=== PATIENT | male | born 1940 | race Caucasian/White ===

== ENCOUNTER 2016-07-15 11:07 | Outpatient (CLI) | payer MEDICARE, BC | END 2016-07-15 11:08 | disposition home or self-care (01) | DX: I25.9 Chronic ischemic heart disease, unspecified (principal); E78.5 Hyperlipidemia, unspecified; R73.01 Impaired fasting glucose ==

== ENCOUNTER 2017-07-20 11:27 | Outpatient (CLI) | payer MEDICARE, BC ==
[2017-07-20 18:12] LABS: CHOL/HDL RATIO 3.7 (<5.0); CHOLESTEROL 152 mg/dL; GLUCOSE 112 mg/dL (70-100); HDL CHOLESTEROL 41 mg/dL; LDL CHOLESTEROL,CALCULATED 92 mg/dL; LDL/HDL RATIO 2.2 (<3.6); VLDL CHOLESTEROL 19 mg/dL
== END 2017-07-20 11:28 | disposition home or self-care (01) ==
LOC: LAB.F 11:27
PROVIDERS: ATTEND Internal Medicine
DX: Z00.00 Encounter for general adult medical examination without abnormal findings (principal); F10.21 Alcohol dependence, in remission; K59.00 Constipation, unspecified; I25.9 Chronic ischemic heart disease, unspecified; I44.0 Atrioventricular block, first degree; E78.5 Hyperlipidemia, unspecified; I10 Essential (primary) hypertension; H61.23 Impacted cerumen, bilateral; R73.01 Impaired fasting glucose; G47.00 Insomnia, unspecified; R41.3 Other amnesia; F41.8 Other specified anxiety disorders; I25.2 Old myocardial infarction; C44.90 Unspecified malignant neoplasm of skin, unspecified; I99.9 Unspecified disorder of circulatory system; R47.01 Aphasia
CPT/HCPCS: 36415; 80061; 82947; 83721

== ENCOUNTER 2018-08-22 21:10 | Outpatient (CLI) | payer MEDICARE, BC | END 2018-08-22 21:11 | disposition critical access hospital (66) | LOC: EMS 21:10 | PROVIDERS: ATTEND Surgery | DX: R10.9 Unspecified abdominal pain (principal) | CPT/HCPCS: A0425; A0429 ==

== ENCOUNTER 2018-08-22 22:01 | Emergency (ER) | payer MEDICARE, BC ==
[2018-08-22] MEDS ORDERED: SODIUM CHLORIDE 0.9% 1,000 ML IV ONE (22:13)
[2018-08-22] MEDS ORDERED: MORPHINE 2 MG/ML CARPUJECT IVP STA (22:13)
[2018-08-22] MEDS ORDERED: ONDANSETRON 4 MG/2 ML VIAL IVP STA (22:13)
--- NOTE | 2018-08-22 22:14 | ED Physician Documentation ---
PD HPI ABD PAIN - Stated complaint Stated Complaint: ABD PAIN - Chief complaint Chief Complaint: Abd Pain - History obtained from History obtained from: Patient (poor historian), EMS, Caregiver - History of Present Illness Timing - onset: Today Timing - duration: Hours Timing - details: Gradual onset Quality: Cramping, Aching, Pain Location: All over / everywhere (Patient does have history of dementia so more difficult to get the story from him. [facility] that the patient has had constipation for the past few days and did complain of some lower abdominal pain. Today in the last few hours he was having complaints of general abdominal pain and was more confused than baseline and appeared pale. He did not have any vomiting. There is no reported fever.) Radiation: Upper back Improved by: No: Position (he seems restless in position) Associated symptoms: Constipation. No: Fever, Vomiting, Diarrhea Similar symptoms before: Has not had sx before Review of Systems Unable to obtain: Dementia Constitutional: denies: Fever Cardiac: denies: Chest pain / pressure GI: reports: Abdominal Pain. denies: Vomiting Neurologic: denies: Headache PD PAST MEDICAL HISTORY - Past Medical History Cardiovascular: Hypertension Neuro: Dementia - Present Medications Home Medications: Ambulatory Orders Medication Instructions Recorded Confirmed Acetaminophen 1,000 mg PO PRN PRN MDD 4gm 08/22/18 08/22/18 Amitriptyline HCl 25 mg PO DAILY 08/22/18 08/22/18 Aspirin Chewable [[place] 81 mg PO DAILY 08/22/18 08/22/18 Aspirin] Atorvastatin [Lipitor] 40 mg PO DAILY 08/22/18 08/22/18 Memantine HCl 5 mg PO DAILY 08/22/18 08/22/18 Metoprolol Succinate 25 mg PO DAILY 08/22/18 08/22/18 Nitroglycerin 0.4 mg SL PRN PRN 08/22/18 08/22/18 PARoxetine HCl [Paroxetine HCl] 40 mg PO DAILY 08/22/18 08/22/18 Polyethylene Glycol 3350 1 tbs PO DAILY PRN 08/22/18 08/22/18 - Allergies Allergies/Adverse Reactions: Allergies Allergy/AdvReac Type Severity Reaction Status Date / Time No Known Drug Allergies Allergy Verified 08/22/18 22:06 - Family History Family history: reports: Non contributory PD ED PE NORMAL - Vitals Vital signs reviewed: Yes - General General: Well developed/nourished, Other (He is poorly interactive and just complains of his abdomen hurting and states "please cut out". He is not really answering directed questions. He does appear pale but not diaphoretic.) - HEENT HEENT: Pharynx benign - Neck Neck: Supple, no meningeal sign, No adenopathy - Cardiac Cardiac: RRR, No murmur - Respiratory Respiratory: Clear bilaterally - Abdomen Abdomen: Non distended, No organomegaly, Other (tender in the mid to upper abdomen with guarding but not percussion tenderness. ). No: Normal bowel sounds (decreased) - Male Male : Other (normal without tenderness) - Rectal Rectal: Deferred - Back Back: No CVA TTP - Derm Derm: No: Normal color - Extremities Extremities: No deformity, Normal ROM s pain, No edema - Neuro Neuro: No motor deficit Results - Vitals Vitals: Vital Signs - 24 hr 08/22/18 08/22/18 08/23/18 22:02 23:39 00:37 Temperature 35.8 C L Heart Rate 73 74 66 Respiratory 20 16 18 Rate Blood Pressure 175/86 H 118/80 114/70 O2 Saturation 96 95 94 Oxygen O2 Source Room air - Labs Labs: Laboratory Tests 08/22/18 08/22/18 08/22/18 22:16 22:16 22:16 WBC 10.7 RBC 4.41 L Hgb 13.8 L Hct 40.9 L MCV 92.9 MCH 31.3 H MCHC 33.7 RDW 12.8 Plt Count 233 MPV 8.3 Neut # (Auto) 9.2 H Lymph # (Auto) 0.9 L [place] # (Auto) 0.4 Eos # (Auto) 0.1 Baso # (Auto) 0.1 Absolute Nucleated RBC 0.00 Nucleated RBC % 0.0 Sodium 136 Potassium 3.8 Chloride 99 L Carbon Dioxide 28 Anion Gap 9.0 BUN 18 Creatinine 1.0 Estimated GFR (MDRD) 72 L Glucose 216 H Lactic Acid 1.7 Calcium 9.1 Total Bilirubin 1.2 H AST 112 H ALT 46 Alkaline Phosphatase 126 H Troponin I Total Protein 7.6 Albumin 4.1 Globulin 3.5 Albumin/Globulin Ratio 1.2 Lipase 37 08/22/18 22:16 WBC RBC Hgb Hct MCV MCH MCHC RDW Plt Count MPV Neut # (Auto) Lymph # (Auto) [place] # (Auto) Eos # (Auto) Baso # (Auto) Absolute Nucleated RBC Nucleated RBC % Sodium Potassium Chloride Carbon Dioxide Anion Gap BUN Creatinine Estimated GFR (MDRD) Glucose Lactic Acid Calcium Total Bilirubin AST ALT Alkaline Phosphatase Troponin I < 0.04 Total Protein Albumin Globulin Albumin/Globulin Ratio Lipase - Rads (name of study) abd/pelvic CT Radiology: Prelim report reviewed (Largely distended stomach and some distention of the proximal small bowel loops without transition point. There is no free air nor free fluids.), EMP read contemporaneously, See rad report PD MEDICAL DECISION MAKING - ED course Complexity details: reviewed results (CT showing just a markedly distended stomach and some dilation of the proximal small bowel. There is no obvious transition point so does not look obstruction per se. No other acute abn ormality.), re-evaluated patient (He was given small amount of antiemetic and pain medicine along with IV fluids. He had a marketed improvement in his discomfort. He now does not have any abdominal pain. His appearing with improved color and is conversant and interactive at his baseline according to his who is now here. He is watched in the ER for a little while longer and he remains without any abdominal pain. Recheck of the abdomen is nontender. Bowel sounds are present. I think he had a bezoar and distended abdomen with the discomfort from that and presume the food is now moving along.), considered differential (Concern for obstruction or focal infection such as diverticulitis or appendix. Also concern for vascular process such as aneurysm. Also concern for sepsis from infectious cause given the altered mentation. We will check blood count and labs as well as urine and CT scan.), d/w patient Departure - Departure Disposition: 01 Home, Self Care Clinical Impression: Acute distention of stomach Abdominal pain Qualifiers: Abdominal location: generalized Qualified Code(s): R10.84 - Generalized abdominal pain Condition: Stable Record reviewed to determine appropriate education?: Yes Instructions: ED Abdominal Pain Unkn Cause Comments: Liquid diet only for 12 hours or so. Continue usual medications. Recheck if recurrent symptoms but I would not anticipate them at this time. Discharge Date/Time: 08/23/18 00:47
[2018-08-22 22:21] LABS: BASOPHILS # (AUTO) 0.1 10^3/uL (0.0-0.1); EOSINOPHILS # (AUTO) 0.1 10^3/uL (0.0-0.7); EOSINOPHILS % (AUTO) 0.5 %; HGB - HEMOGLOBIN 13.8 g/dL (14.0-18.0); LYMPHOCYTES # (AUTO) 0.9 10^3/uL (1.5-3.5); LYMPHOCYTES % (AUTO) 8.8 %; MEAN CORPUSCULAR HEMOGLOBIN 31.3 pg (27.0-31.0); MEAN CORPUSCULAR HGB CONC 33.7 g/dL (32.0-36.0); MEAN CORPUSCULAR VOLUME 92.9 fL (80.0-94.0); MEAN PLATELET VOLUME 8.3 fL (7.4-11.4); MONOCYTES # (AUTO) 0.4 10^3/uL (0.0-1.0); MONOCYTES % (AUTO) 3.6 %; NEUTROPHILS # (AUTO) 9.2 10^3/uL (1.5-6.6); NEUTROPHILS % (AUTO) 86.1 %; PLT - PLATELET COUNT 233 10^3/uL (130-450); RED BLOOD COUNT 4.41 10^6/uL (4.70-6.10); RED CELL DISTRIBUTION WIDTH 12.8 % (12.0-15.0); WHITE BLOOD COUNT 10.7 x10^3/uL (4.8-10.8)
[2018-08-22] MEDS ORDERED: IOPAMIDOL-300 100 ML VIAL ONE (22:27)
[2018-08-22 22:40] LABS: ALBUMIN 4.1 g/dL (3.2-5.5); ALBUMIN/GLOBULIN RATIO 1.2 (1.0-2.2); BILIRUBIN,TOTAL 1.2 mg/dL (0.2-1.0); CALCIUM 9.1 mg/dL (8.5-10.3); TOTAL PROTEIN 7.6 g/dL (6.7-8.2)
[2018-08-22] MEDS ORDERED: IOPAMIDOL-300 100 ML VIAL IVP ONE (22:44)
--- NOTE | 2018-08-22 23:16 | CT Report ---
Reason: diffuse abd pain, onset today Procedure Date: 08/22/2018 Accession Number: [id number] / [id number] Procedure: CT - Abdomen/Pelvis W CPT Code: FULL RESULT: EXAM: CT ABDOMEN AND PELVIS EXAM DATE: 08/22/2018 10:45 PM. CLINICAL HISTORY: Diffuse abdominal pain. COMPARISONS: None. TECHNIQUE: Routine helical CT imaging was performed through the abdomen and pelvis. IV contrast: ISOVUE 300 100mL. Enteric contrast: No. Reconstructions: Coronal and sagittal. In accordance with CT protocol optimization, one or more of the following dose reduction techniques were utilized for this exam: automated exposure control, adjustment of mA and/or KV based on patient size, or use of iterative reconstructive technique. FINDINGS: Lung Bases: Mild bilateral atelectasis, infiltrate, or edema. Mild cardiomegaly. Coronary artery calcifications. Liver: Fatty infiltration. Gallbladder/Bile Ducts: Mildly dilated gallbladder measuring about 12 mm. No calcified gallstones. No obvious cholecystitis. Spleen: Mild capsular calcifications. Pancreas: Moderate atrophy. Adrenal Glands: Normal. Kidneys: Small left renal cyst. No masses or hydronephrosis. Peritoneal Cavity/Bowel: Distended fluid-filled stomach. Nonspecific fluid-filled small bowel loops measuring up to 3.3 cm. Distal small bowel is decompressed. Colonic diverticula. No obvious diverticulitis. No free air or free fluid. No lymphadenopathy. Appendix appears normal. Pelvic Organs: Enlarged prostate measuring 6.4 x 5.1 cm. Intravesicular protrusion measuring 1.6 cm. Vasculature: Moderate atherosclerosis. Ascending aorta measures 4.4 cm. Proximal descending aorta measures 3.3 cm. No abdominal aortic aneurysm. Aortobifemoral bypass graft. Bones: No significant abnormality. Other: None. IMPRESSION: 1. Cardiomegaly and coronary artery calcifications with bilateral atelectasis, infiltrate, or edema. 2. Fatty liver. 3. Dilated gallbladder without obvious cholecystitis. Correlate for any gallbladder symptoms. 4. Distended fluid-filled stomach. There are a few nonspecific small bowel loops measuring up to 3.3 cm with a few air-fluid levels. Mild ileus or enteritis could have this appearance. Low-grade obstruction less likely but not entirely excluded. 5. A few colonic diverticula are seen. No diverticulitis or appendicitis noted. 6. Enlarged prostate with intravesicular protrusion measuring 1.6 cm. 7. 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 Moderate atherosclerosis with aortobifemoral bypass graft. [facility]
[2018-08-23] MEDS ORDERED: KETOROLAC 15 MG/ML VIAL IVP STA (00:10)
[2018-08-23 00:39] VITALS: BP 114/70
== END 2018-08-23 00:47 | disposition home or self-care (01) ==
LOC: EDUNIT# → ED 22:01
DX: R14.0 Abdominal distension (gaseous) (principal); R10.84 Generalized abdominal pain; F03.90 Unspecified dementia, unspecified severity, without behavioral disturbance, psychotic disturbance, mood disturbance, and anxiety; I10 Essential (primary) hypertension; K76.0 Fatty (change of) liver, not elsewhere classified; I77.810 Thoracic aortic ectasia; I70.0 Atherosclerosis of aorta; I45.81 Long QT syndrome; I49.1 Atrial premature depolarization; N40.0 Benign prostatic hyperplasia without lower urinary tract symptoms; Z79.82 Long term (current) use of aspirin
CPT/HCPCS: 36415; 74177; 80053; 83605; 83690; 84484; 85025; 93005; 99284; Q9967